=== PATIENT | female | born 1970 | race American Indian/Alaskan Native ===

== ENCOUNTER 2018-03-19 21:21 | Emergency (ER) | payer BC ==
[2018-03-19 21:28] VITALS: BMI 31.9
[2018-03-19 21:33] VITALS: RESP 18; TEMP 97.5
--- NOTE | 2018-03-19 22:18 | ED PDOC ---
Arrival/HPI <Leandro Becker - Last Filed: 03/19/18 23:19> - General Historian: Patient - History of Present Illness Narrative History of Present Illness (Text): 03/19/18 22:10 47 y o female with extensive past medical history presents complaining of epistaxis from R nostril x 45 mins. States that she last had episode of epistaxis 2 weeks prior which resolved on its own. Reports hx of being on Xarelto 20 mg daily for prior blood clot in upper extremity (2008, 2010). Follows with ENT specialist for same issue. States she last had cautery to her nose 1 y ago. Denies lightheadedness/dizziness, chest pain, palpitations, shortness of breath, n/v/d/c, abd pain, issues with gait, urinary complaints, or other symptoms currently. 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 Holley ENT: Dr. Wilkins Time/Duration: 1 hour Symptom Onset: Sudden Symptom Course: Unchanged Activities at Onset: Rest <Howard Whitney - Last Filed: 03/19/18 23:53> - General Chief Complaint: ENT Problem Past Medical History - Infectious Disease Hx of Infectious Diseases: None - Tetanus Immunization Tetanus Immunization: Unknown - Cardiac Hx Cardiac Disorders: No - Pulmonary Hx Asthma: Yes - Neurological Hx Migraine: Yes - Hematological/Oncological Other/Comment: DVT - Musculoskeletal/Rheumatological Other/Comment: R knee arthroscopy - Gastrointestinal Hx Gastroesophageal Reflux: Yes - Genitourinary/Gynecological Other/Comment: Overactive bladder - Psychiatric Hx Bipolar Disorder: Yes Hx Depression: Yes Hx Substance Use: No - Surgical History Hx Section: Yes Hx Gastric Bypass Surgery: Yes Hx Orthopedic Surgery: Yes (left foot 2002) Other/Comment: R knee arthroscopy - Anesthesia Hx Anesthesia: Yes Hx Anesthesia Reactions: No Hx Malignant Hyperthermia: No - Suicidal Assessment Feels Threatened In Home Enviroment: No <Howard Whitney - Last Filed: 03/19/18 23:53> Family/Social History Family/Social History: No Known Family HX Smoking Status: Never Smoked Hx Alcohol Use: Yes (SOCIALLY) Hx Substance Use: No Hx Substance Use Treatment: No <CheloHoward - Last Filed: 03/19/18 23:53> Allergies/Home Meds <Leandro Becker - Last Filed: 03/19/18 23:19> <CheloHoward - Last Filed: 03/19/18 23:53> Allergies/Adverse Reactions: Allergies iodine Allergy (Mild, Verified 03/08/16 16:58) RASH Penicillins Allergy (Mild, Verified 03/08/16 16:58) RASH Sulfa (Sulfonamide Antibiotics) Allergy (Mild, Verified 08/31/15 10:42) RASH Home Medications: Home Meds Medication Instructions Recorded Confirmed Tiotropium [Spiriva] 18 mcg IH DAILY 10/12/12 03/08/16 Aspirin [Ecotrin] 81 mg PO DAILY 03/08/16 03/08/16 Budesonide/Formoterol Fumarate 1 aer IH BID 03/08/16 03/08/16 [Symbicort 160-4.5 Mcg Inhaler] Cetirizine HCl [Zyrtec] 10 mg PO DAILY 03/08/16 03/08/16 Mirabegron [Myrbetriq] 50 mg PO DAILY 03/08/16 03/08/16 Montelukast [Singulair] 10 mg PO DAILY 03/08/16 03/08/16 Pantoprazole [Protonix EC Tab] 40 mg PO DAILY 03/08/16 03/08/16 Rivaroxaban [Xarelto] 20 mg PO DAILY 03/08/16 03/08/16 Review of Systems - Review of Systems Constitutional: absent: Fatigue Eyes: absent: Vision Changes ENT: absent: Tinnitus Cardiovascular: absent: Chest Pain, Palpitations, GUERRA Gastrointestinal: absent: Abdominal Pain, Stool Changes, Constipation, Diarrhea, Nausea, Vomiting, Hematochezia, Hematemesis Neurological: Normal Hemo/Lymphatic: Easy Bleeding <Howard Whitney - Last Filed: 03/19/18 23:53> Physical Exam Vital Signs Temp Pulse Resp BP Pulse Ox 11/28/18 21:33 97.5 F L 87 18 102/74 97 <Leandro Becker - Last Filed: 03/19/18 23:19> Vital Signs Reviewed: Yes Vital Signs Temp Pulse Resp BP Pulse Ox 03/19/18 21:33 97.5 F L 87 18 102/74 97 Temperature: Afebrile Blood Pressure: Normal Pulse: Regular Respiratory Rate: Normal Appearance: Positive for: Well-Appearing, Non-Toxic, Comfortable Pain Distress: None Mental Status: Positive for: Alert and Oriented X 3 - Systems Exam Head: Present: Atraumatic, Normocephalic Pupils: Present: PERRL Extroacular Muscles: Present: EOMI Conjunctiva: Present: Normal Ears: Present: Normal, NORMAL TM Mouth: Present: Moist Mucous Membranes Nose (External): Present: Atraumatic. No: Laceration Nose (Internal): Present: No Active Bleeding (Upon removal of packing pt placed in nose, clot was observed), Moist Neck: Present: Normal Range of Motion. No: JVD, Lymphadenopathy Respiratory/Chest: Present: Clear to Auscultation, Good Air Exchange. No: Respiratory Distress, Wheezes, Rales, Rhonchi Cardiovascular: Present: Regular Rate and Rhythm, Normal S1, S2. No: Murmurs, Rub, Gallop Abdomen: Present: Normal Bowel Sounds. No: Tenderness, Distention, M ass/Organomegaly Upper Extremity: Present: Normal Inspection, Normal ROM, NORMAL PULSES, Neurovascularly Intact, Capillary Refill < 2s. No: Cyanosis, Edema Lower Extremity: Present: Normal Inspection, NORMAL PULSES, Normal ROM, Neurovascularly Intact, Capillary Refill < 2 s. No: Edema, CALF TENDERNESS, Cyanosis Neurological: Present: GCS=15, CN II-XII Intact, Speech Normal, Motor Func Grossly Intact, Gait Normal Skin: Present: Warm, Dry, Normal Color. No: Rashes Psychiatric: Present: Alert, Oriented x 3, Normal Insight, Normal Concentration <Howard Whitney - Last Filed: 03/19/18 23:53> Medical Decision Making ED Course and Treatment: Impression: Pt seen and evaluated with medical front desk coordinator. Aware and agree with HPI, clinical findings, plan, and management. Pt, whose past medical history incldes DVT on Xarelto, asthma, colitis, migraines, and GERD, presented for epistaxis from right nostril 45 minutes prior to arrival. Plan: -- Epistaxis management -- Reassess and disposition Epistaxis management performed by medical front desk coordinator under my supervision. Good hemostasis. The patient was observed and no repeat episode of bleeding was noted. <RositaLeandro - Last Filed: 03/19/18 23:19> ED Course and Treatment: 03/19/18 22:21 Pt presents with recurrent epistaxis likely 2/2 Xarelto use. Removed packing from R nostril that pt placed in nose prior to arrival. Placed vaseline gauze packing. No active bleeding observed. Continue to monitor pt, will reassess. 03/19/18 22:58 Reassessed pt and removed vaseline gauze packing. No active bleeding from R nostril at this time. Stable for discharge to home at this time. Can follow with PMD and with ENT specialist within 1 week of emergency department discharge. Instructed to continue taking medications as prescribed. Advised pt to use Vaseline prn to keep nostril hydrated. All questions and concerns addressed with pt and she is agreeable to plan. <Howard Whitney - Last Filed: 03/19/18 23:53> - PA / MANAGER DISH / Resident Statement / has reviewed & agrees with the documentation as recorded. / has examined the patient and agrees with the treatment plan. <RositaLeandro - Last Filed: 03/19/18 23:19> Disposition/Present on Arrival <RositaLeandro - Last Filed: 03/19/18 23:19> - Present on Arrival Any Indicators Present on Arrival: No History of DVT/PE: No History of Uncontrolled Diabetes: No Urinary Catheter: No History of Decub. Ulcer: No History Surgical Site Infection Following: None - Disposition Have Diagnosis and Disposition been Completed?: Yes Disposition Time: 23:00 <Howard Whitney - Last Filed: 03/19/18 23:53> - Disposition Diagnosis: Epistaxis Disposition: HOME/ ROUTINE Patient Problems: Current Active Problems Problem Status Onset Epistaxis Acute Condition: IMPROVED Discharge Instructions (ExitCare): Nosebleeds (DC) Print Language: BELARUSIAN Additional Instructions: Please follow-up with your primary care physician (Dr. Holley) and ENT specialist for appointments within 1 week of discharge. May use Vaseline as needed to hydrate affected nostril. Should symptoms recur or worsen, please call your primary care physician or report to your nearest emergency department. Referrals: Letitia Holley DO [[facility]] - Follow up with primary Santiago Wilkins DO [[facility]] - Follow up with primary Forms: Pickup Services (Kazakh)
[2018-03-19 23:32] VITALS: BP 108/79; PULSE 85; O2SAT 100
== END 2018-03-19 23:15 | disposition home or self-care (01) ==
LOC: ED 21:21
DX: R04.0 Epistaxis (principal)

== ENCOUNTER 2018-07-17 13:37 | Emergency (ER) | payer BC ==
[2018-07-17 13:37] VITALS: BMI 31.9
[2018-07-17 13:44] VITALS: O2SAT 98
--- NOTE | 2018-07-17 14:35 | ED PDOC ---
Arrival/HPI - General Time Seen by Provider: 07/17/18 13:55 Historian: Patient - History of Present Illness Narrative History of Present Illness (Text): 07/17/18 14:27 47 y/o F with pmh of asthma presents with cc cough w/ sputum (yellow/greenish) x3 weeks. Patient reports that she saw her retread technician today who advised her to report to the emergency department for her URI that she has had for 3 weeks. Patient's retread technician previously prescribed her levaquin but 2 days ago switched her prescription to biaxin to treat her URI. Patient claims she has gotten worse since the biaxin treatment. Patient denies any recent travel or sick contact. Patient is compliant with her asthma medications of symbicort and ventolin. Patient denies any fevers, chills, headache, dizziness, chest pain, shortness of breath, dyspnea on exertion, diaphoresis, abdominal pain, nausea, vomiting, diarrhea, back pain, neck pain, or any other complaints. Time/Duration: > week Symptom Onset: Gradual Symptom Course: Worsening Activities at Onset: Light Context: Home Past Medical History - Provider Review Nursing Documentation Reviewed: Yes - Infectious Disease Hx of Infectious Diseases: None - Tetanus Immunization Tetanus Immunization: Unknown - Cardiac Hx Cardiac Disorders: No - Pulmonary Hx Asthma: Yes - Neurological Hx Migraine: Yes - Hematological/Oncological Other/Comment: DVT - Musculoskeletal/Rheumatological Other/Comment: R knee arthroscopy - Gastrointestinal Hx Gastroesophageal Reflux: Yes - Genitourinary/Gynecological Other/Comment: Overactive bladder - Psychiatric Hx Bipolar Disorder: Yes Hx Depression: Yes Hx Substance Use: No - Surgical History Hx Section: Yes Hx Gastric Bypass Surgery: Yes Hx Orthopedic Surgery: Yes (left foot 2002) Other/Comment: R knee arthroscopy - Anesthesia Hx Anesthesia: Yes Hx Anesthesia Reactions: No Hx Malignant Hyperthermia: No - Suicidal Assessment Feels Threatened In Home Enviroment: No Family/Social History - Physician Review Nursing Documentation Reviewed: Yes Family/Social History: Unknown Family HX Smoking Status: Never Smoked Hx Alcohol Use: Yes (SOCIALLY) Hx Substance Use: No Hx Substance Use Treatment: No Allergies/Home Meds Allergies/Adverse Reactions: Allergies iodine Allergy (Mild, Verified 07/17/18 14:27) RASH Penicillins Allergy (Mild, Verified 07/17/18 14:27) RASH Sulfa (Sulfonamide Antibiotics) Allergy (Mild, Verified 07/17/18 14:27) RASH Home Medications: Home Meds Medication Instructions Recorded Confirmed Tiotropium [Spiriva] 18 mcg IH DAILY 10/12/12 03/08/16 Aspirin [Ecotrin] 81 mg PO DAILY 03/08/16 03/08/16 Budesonide/Formoterol Fumarate 1 aer IH BID 03/08/16 03/08/16 [Symbicort 160-4.5 Mcg Inhaler] Cetirizine HCl [Zyrtec] 10 mg PO DAILY 03/08/16 03/08/16 Mirabegron [Myrbetriq] 50 mg PO DAILY 03/08/16 03/08/16 Montelukast [Singulair] 10 mg PO DAILY 03/08/16 03/08/16 Pantoprazole [Protonix EC Tab] 40 mg PO DAILY 03/08/16 03/08/16 Rivaroxaban [Xarelto] 20 mg PO DAILY 03/08/16 03/08/16 Review of Systems - Physician Review All systems were reviewed & negative as marked: Yes - Review of Systems Constitutional: Normal. absent: Fevers Eyes: Normal ENT: Normal Respiratory: Cough (w/ sputum (yellow/greenish)). absent: SOB Cardiovascular: Normal Gastrointestinal: Normal Genitourinary Female: Normal Musculoskeletal: Normal Skin: Normal Neurological: Normal Endocrine: Normal Hemo/Lymphatic: Normal Psychiatric: Normal Physical Exam Vital Signs Reviewed: Yes Vital Signs Temp Pulse Resp BP Pulse Ox 07/17/18 13:44 98.9 F 89 18 120/81 98 Temperature: Afebrile Blood Pressure: Normal Pulse: Regular Respiratory Rate: Normal Appearance: Positive for: Well-Appearing, Non-Toxic, Comfortable Pain Distress: Moderate Mental Status: Positive for: Alert and Oriented X 3 - Systems Exam Head: Present: Atraumatic, Normocephalic Pupils: Present: PERRL Extroacular Muscles: Present: EOMI Conjunctiva: Present: Normal Mouth: Present: Moist Mucous Membranes Neck: Present: Normal Range of Motion Respiratory/Chest: Present: Rhonchi (bilateral). No: Respiratory Distress, Accessory Muscle Use, Wheezes, Rales Cardiovascular: Present: Regular Rate and Rhythm, Normal S1, S2. No: Murmurs Abdomen: No: Tenderness, Distention, Peritoneal Signs Back: Present: Normal Inspection Upper Extremity: Present: Normal Inspection. No: Cyanosis, Edema Lower Extremity: Present: Normal Inspection. No: Edema Neurological: Present: GCS=15, Speech Normal Skin: Present: Warm, Dry, Normal Color. No: Rashes Psychiatric: Present: Alert, Oriented x 3, Normal Insight, Normal Concentration Medical Decision Making ED Course and Treatment: 07/17/18 14:37 Impression: 47 y/o F presents with cc cough w/ sputum (yellow/greenish) x3 weeks Differential Diagnosis included but are not limited to: Plan: -- CXR -- Duoneb 3mg -- Solu- Cortef -- Reassess and disposition Prior Visits: Notes and results from previous visits were reviewed. Progress Notes: 07/17/18 17:32 In recent visit to patient, she request Bromfed dm for her cough. - RAD Interpretation Narrative RAD Interpretations (Text): 07/17/18 17:07 Chest X-Ray -- No active disease Local [employer] Driver: Radiologist - Scribe Statement The provider has reviewed the documentation as recorded by the Gigi Holt All medical record entries made by the Scribe were at my direction and personally dictated by me. I have reviewed the chart and agree that the record accurately reflects my personal performance of the history, physical exam, medical decision making, and the department course for this patient. I have also personally directed, reviewed, and agree with the discharge instructions and disposition. Disposition/Present on Arrival - Present on Arrival History of DVT/PE: No History of Uncontrolled Diabetes: No Urinary Catheter: No History Surgical Site Infection Following: None - Disposition Diagnosis: Bronchitis Disposition: HOME/ ROUTINE Patient Problems: Current Active Problems Problem Status Onset Bronchitis Acute Condition: GOOD Discharge Instructions (ExitCare): Acute Bronchitis, Adult (DC) Additional Instructions: Follow up with your pcp and take the prednisone as directed. Continue the Biaxin as directed by your pcp. Prescriptions: predniSONE [Prednisone] 60 mg PO DAILY 4 Days tab Referrals: Letitia Holley DO [Primary Care Provider] - Follow up with primary Forms: WORK NOTE
[2018-07-17] MEDS: Albuterol-Ipratrop 3 mg / 0.5 (3 ml) UD IH SCH ×3 (14:58→15:20)
--- NOTE | 2018-07-17 15:40 | RAD ---
Date of service: 07/17/2018 HISTORY: productive cough COMPARISON: 03/08/2016 TECHNIQUE: Chest PA and lateral views FINDINGS: LUNGS: No active pulmonary disease. PLEURA: No significant pleural effusion identified. No pneumothorax apparent. CARDIOVASCULAR: No aortic atherosclerotic calcification present. Normal cardiac size. No pulmonary vascular congestion. OSSEOUS STRUCTURES: No significant abnormalities. VISUALIZED UPPER ABDOMEN: Normal. OTHER FINDINGS: None. IMPRESSION: No active disease.
[2018-07-17 16:07] LABS: BASO # 0.02 K/mm3 (0.0-2.0); BASO % 0.2 % (0.0-3.0); EOS # 0.1 (0.0-0.7); EOS % 1.4 % (1.5-5.0); HEMOGLOBIN 12.4 g/dL (12.0-16.0); LYMPH % 30.7 % (22.0-35.0); MEAN CELL VOLUME 92.6 fl (80.0-105.0); MEAN CORPUSCULAR HEMOGLOBIN 29.5 pg (25.0-35.0); MEAN CORPUSCULAR HGB CONC 31.9 g/dl (31.0-37.0); MONO # 0.6 (0.1-0.6); MONO % 6.1 % (1.0-6.0); RBC 4.2 10^6/uL (3.5-6.1); RED CELL DISTRIBUTION WIDTH 13.5 % (11.5-14.5); WHITE BLOOD COUNT 9.9 10^3/uL (4.5-11.0)
[2018-07-17 16:21] LABS: ALB/GLOB RATIO 1.1 (1.1-1.8); ALBUMIN 3.7 g/dL (3.0-4.8); ALT/SGPT 19 U/L (7-56); AST/SGOT 27 U/L (14-36); BLOOD UREA NITROGEN 16 mg/dL (7-21); CALCIUM 9.1 mg/dL (8.4-10.5); GFR NON-AFRICAN AMERICAN > 60
[2018-07-17 17:18] VITALS: BP 121/74; PULSE 87; RESP 17; TEMP 98.7
== END 2018-07-17 17:41 | disposition home or self-care (01) ==
LOC: ED 13:37
DX: J40 Bronchitis, not specified as acute or chronic (principal)
CPT/HCPCS: 71046; 80053; 85025; 87081; 96374; 99283; J2930